=== PATIENT | female | born 1955 | race Caucasian/White ===

== ENCOUNTER 2016-11-24 13:52 | Emergency (ER) | payer OTHER ==
[2016-11-24] MEDS ORDERED: MORPHINE SULFATE 10 MG/ML INJ IV ONE (14:10)
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
[2016-11-24] MEDS ORDERED: DIPH/PERTUSS(ACELL)/TETANUS VAC/PF 0.5 ML SYR (>=10YO) IM ONE (15:17)
[2016-11-24] MEDS ORDERED: KETOROLAC TROMETHAMINE INJ/PF 30 MG/1 ML SDV IV ONE (15:59)
[2016-11-24] MEDS ORDERED: ONDANSETRON HCL INJ/PF 4 MG/2 ML SDV IV ONE (15:59)
[2016-11-24 18:07] VITALS: BP 131/80
== END 2016-11-24 16:45 | disposition home or self-care (01) ==
LOC: ER 13:52
DX: S16.1XXA Strain of muscle, fascia and tendon at neck level, initial encounter (principal); S60.222A Contusion of left hand, initial encounter; V49.40XA Driver injured in collision with unspecified motor vehicles in traffic accident, initial encounter; R51 Headache; M54.2 Cervicalgia; M79.642 Pain in left hand
CPT/HCPCS: 99284; 90471; 96374; 96375; 73130; 70450; 72125; 90715; J1885; J2270; J2405

== ENCOUNTER 2017-01-23 17:22 | Inpatient (IN) | payer OTHER ==
[~2017-01-23 17:22] MED LIST: SUCCINYLCHOLINE CHLORIDE INJ 200 MG/10 ML VIAL ONE
[2017-01-23] MEDS ORDERED: ONDANSETRON 4 MG TAB.RAPDIS PO PRN (18:33)
[2017-01-23] MEDS ORDERED: ALBUTEROL SULFATE 0.083% NEB 2.5 MG/3 ML AMPUL NEB PRN (18:40)
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
[2017-01-23 19:10] LABS: HEMATOCRIT 43.5 % (36.0-47.0); HEMOGLOBIN 14.8 g/dL (12.0-15.5); HGB HCT DIFFERENCE 0.9; MEAN CORPUSCULAR HEMOGLOBIN 29.6 pg (27.0-33.4); MEAN CORPUSCULAR HGB CONC 33.9 g/dL (32.0-36.0); MEAN CORPUSCULAR VOLUME 87 fl (80-97); RED BLOOD COUNT 4.98 10^6/uL (3.72-5.28); RED CELL DISTRIBUTION WIDTH 13.4 % (11.5-14.0); WHITE BLOOD COUNT 9.2 10^3/uL (4.0-10.5)
[2017-01-23 19:22] LABS: ANION GAP 15 (5-19); BLOOD UREA NITROGEN 14 mg/dL (7-20); CALCIUM 9.6 mg/dL (8.4-10.2); CARBON DIOXIDE 22 mmol/L (22-30); CHLORIDE 107 mmol/L (98-107); CREATININE RESULT 0.67 mg/dL (0.52-1.25); GLUCOSE 176 mg/dL (75-110); POTASSIUM 4.5 mmol/L (3.6-5.0); SODIUM 143.9 mmol/L (137-145)
--- NOTE | 2017-01-23 19:28 | RADIOLOGY REPORT (SQ) ---
EXAM DESCRIPTION: CHEST SINGLE VIEW COMPLETED DATE/TIME: 01/23/2017 7:16 pm REASON FOR STUDY: pre-op clearance COMPARISON: February 2008 EXAM PARAMETERS: NUMBER OF VIEWS: One view. TECHNIQUE: Single frontal radiographic view of the chest acquired. RADIATION DOSE: NA LIMITATIONS: None. FINDINGS: LUNGS AND PLEURA: No opacities, masses or pneumothorax. No pleural effusion. MEDIASTINUM AND HILAR STRUCTURES: No masses. Contour normal. HEART AND VASCULAR STRUCTURES: Heart normal in size. Normal vasculature. BONES: No acute findings. HARDWARE: None in the chest. OTHER: No other significant finding. IMPRESSION: NO ACUTE RADIOGRAPHIC FINDING IN THE CHEST. TECHNICAL DOCUMENTATION: JOB ID: [id number] [employer]- All Rights Reserved
--- NOTE | 2017-01-23 19:43 | EKG REPORT ---
SEVERITY:- NORMAL ECG - SINUS RHYTHM : Confirmed by: Robert Dozier MD 23-Jan-2017 19:42:57
[2017-01-23] MEDS ORDERED: LANSOPRAZOLE 30 MG TAB.RAP.DR PO ONE (20:00)
[2017-01-23] MEDS ORDERED: MONTELUKAST SODIUM 10 MG TABLET PO ONE (20:00)
[2017-01-23] MEDS: RINGERS SOLUTION,LACTATED 1,000 ML IV PRN (20:37)
[2017-01-23] MEDS: LORAZEPAM 1 MG TABLET PO SCH (22:03)
[2017-01-23] MEDS: AMITRIPTYLINE HCL 75 MG TABLET PO SCH (22:03)
[2017-01-23] MEDS: OXYCODONE HCL IR 5 MG TABLET PO PRN (22:04)
[2017-01-23] MEDS: VENLAFAXINE HCL 75 MG CAP.SR.24H PO SCH (22:04)
[2017-01-23] MEDS: ONDANSETRON HCL INJ/PF 4 MG/2 ML SDV IV PRN (22:06)
[2017-01-23 22:31] LABS: PROTHROMBIN TIME 12.1 SEC (11.4-15.4)
[2017-01-23 22:32] LABS: PARTIAL THROMBOPLASTIN TIME 25.2 SEC (23.5-35.8)
[2017-01-24] MEDS ORDERED: CEFAZOLIN 2 GM/D5W RTU 2 GM/50 ML RTUPB IV PRN (05:00)
[2017-01-24] MEDS: LANSOPRAZOLE 30 MG TAB.RAP.DR PO SCH ×2 (05:34→19:10)
[2017-01-24] MEDS: ONDANSETRON HCL INJ/PF 4 MG/2 ML SDV IV PRN ×2 (05:35→21:31)
[2017-01-24] MEDS: OXYCODONE HCL IR 5 MG TABLET PO PRN (05:35)
--- NOTE | 2017-01-24 07:21 | PDOC H&P ---
History of Present Illness Admission Date/PCP: 01/23/17 18:25 History of Present Illness: Bilateral upper extremity pain Past Medical History Cardiac Medical History: Reports: Hypertension Pulmonary Medical History: Reports: Asthma, Sleep Apnea EENT Medical History: Reports: None, Other - Pernicious anemia Neurological Medical History: Reports: Other - Neuropathy in her leg after knee surgery. Endocrine Medical History: Reports: None Renal/ Medical History: Reports: None Malignancy Medical History: Reports: None GI Medical History: Reports: Gastroesophageal Reflux Disease Musculoskeltal Medical History: Reports: Arthritis Psychiatric Medical History: Reports: Depression, General Anxiety Disorder Hematology: Reports: Other - Pernicious anemia Infectious Medical History: Reports: None Past Surgical History Past Surgical History: Reports: Orthopedic Surgery - knee and L elbow Social History Information Source: Patient, [facility], [facility] Records Lives with: Alone Smoking Status: Never Smoker Frequency of Alcohol Use: None Hx Recreational Drug Use: No Drugs: None Hx Prescription Drug Abuse: No - Advance Directive Resuscitation Status: Full Code Family History Family History: None Parental Family History Reviewed: No Children Family History Reviewed: No Sibling(s) Family History Reviewed.: No Medication/Allergy Home Medications: Albuterol Sulfate [Albuterol Sulfate 2.5mg/3 mL] 2.5 mg IH Q4 PRN 01/24/17 Albuterol Sulfate [Ventolin Hfa] 2 puff IH Q4 PRN 01/24/17 Amitriptyline HCl [Elavil 150 mg Tablet] 1 tab PO DAILY 01/24/17 Amlodipine Besylate 2.5 mg PO DAILY 01/24/17 Ascorbic Acid [Vitamin C] 1,000 mg PO DAILY 01/24/17 Aspirin [Adult Low Dose Aspirin EC] 81 mg PO DAILY 01/24/17 Cholecalciferol (Vitamin D3) [Vitamin D3 5000 unit Capsule] 5,000 unit PO DAILY 01/24/17 Cyanocobalamin (Vitamin B-12) [Vitamin B-12 Inj 1000 Mcg/1 ml Vial] 1,000 mcg IM [id number] 01/24/17 Ergocalciferol (Vitamin D2) [Vitamin D2] 50,000 unit PO FR 01/24/17 Ferrous Sulfate 325 mg PO BID 01/24/17 Lorazepam 2 mg PO BID 01/24/17 Losartan Potassium 50 mg PO DAILY 01/24/17 Montelukast Sodium 10 mg PO DAILY 01/24/17 Parachute-3 Fatty Acids/Fish Oil [Fish Oil 1,000 mg Capsule] 2 tab PO DAILY Omeprazole 40 mg PO BID 01/24/17 Oxycodone HCl/Acetaminophen [Oxycodon-Acetaminophen 7.5-325] 1 each PO Q6HP PRN 01/24/17 Temazepam 15 mg PO DAILY 01/24/17 Venlafaxine HCl [Effexor] 150 mg PO BID 01/24/17 Zolpidem Tartrate 10 mg PO DAILY 01/24/17 Allergies/Adverse Reactions: Penicillins Allergy (Mild, Verified 01/23/17 19:35) Hives Review of Systems All systems: as per [facility] Physical Exam Vital Signs: Temp Pulse Resp BP Pulse Ox 36.8 C 71 18 113/61 97 01/24/17 00:53 01/24/17 02:00 01/24/17 00:53 01/24/17 00:53 01/24/17 00:53 Intake & Output 01/23/17 01/24/17 01/25/17 06:59 06:59 06:59 Weight 115 kg Physical Exam: Patient is a middle-aged white female with significant nasal and periorbital ecchymosis and minor to moderate distress Head exam: PRESENT: normocephalic Eye exam: PRESENT: EOMI Adult Head Front/Back Image: 1 - Ecchymosis Respiratory exam: PRESENT: unlabored Cardiovascular exam: PRESENT: RRR Vascular exam: PRESENT: normal capillary refill GI/Abdominal exam: PRESENT: soft Rectal exam: PRESENT: deferred Extremities exam: PRESENT: other - Bilateral upper extremities immobilized in posterior splints. Neurovascular examination to each of the 10 fingers is intact. Neurological exam: PRESENT: alert, awake, oriented to person, oriented to place , oriented to time, oriented to situation. ABSENT: motor sensory deficit Psychiatric exam: PRESENT: appropriate affect, normal mood. ABSENT: homicidal ideation, suicidal ideation Skin exam: PRESENT: dry, intact, warm. ABSENT: cyanosis, rash Results Laboratory Results: 01/23/17 19:00 01/23/17 19:00 01/23/17 01/23/17 19:00 19:00 WBC 9.2 RBC 4.98 Hgb 14.8 Hct 43.5 MCV 87 MCH 29.6 MCHC 33.9 RDW 13.4 Plt Count 153 Sodium 143.9 Potassium 4.5 Chloride 107 Carbon Dioxide 22 Anion Gap 15 BUN 14 Creatinine 0.67 Est GFR ( Amer) > 60 Est GFR (Non-Af Amer) > 60 Glucose 176 H Calcium 9.6 Impressions: Chest X-Ray 01/23/17 00:00 IMPRESSION: NO ACUTE RADIOGRAPHIC FINDING IN THE CHEST. Status: Imported from PACS Assessment & Plan - Diagnosis (1) Radial neck fracture Qualifiers: Encounter type: initial encounter Fracture type: closed Fracture alignment: nondisplaced Laterality: left Qualified Code(s): S52.135A - Nondisplaced fracture of neck of left radius, initial encounter for closed fracture Is this a current diagnosis for this admission?: Yes Plan: 61-year-old white female with bilateral upper extremity fractures which leaves her with significant functional deficit. Plan will be to proceed with an open reduction internal fixation of both radial head fractures. The goal of this will be to improve her function allow her to care for herself since she lives alone. - Time Time Spent: 50 to 70 Minutes Critical Time spent with patient: 15-24 minutes Anticipated discharge: Home with Homehealth Within: within 24 hours
[2017-01-24] MEDS: RINGERS SOLUTION,LACTATED 1,000 ML IV PRN ×2 (10:09→21:32)
[2017-01-24] MEDS: AMLODIPINE BESYLATE 2.5 MG TABLET PO SCH (10:52)
[2017-01-24] MEDS: LORAZEPAM 1 MG TABLET PO SCH (10:52)
[2017-01-24] MEDS: LOSARTAN POTASSIUM 50 MG TABLET PO SCH (10:52)
[2017-01-24] MEDS: VENLAFAXINE HCL 75 MG CAP.SR.24H PO SCH ×2 (10:52→21:33)
[2017-01-24] MEDS ORDERED: LORAZEPAM 1 MG TABLET PO ONE (11:00)
[2017-01-24] MEDS ORDERED: LORAZEPAM INJ 2 MG/1 ML VIAL IV ONE (11:00)
[2017-01-24] MEDS: MORPHINE SULFATE 10 MG/ML INJ IV PRN ×2 (11:20→21:34)
--- NOTE | 2017-01-24 11:36 | PDOC PROGRESS REPORT ---
Subjective Progress Note for:: 01/24/17 Subjective:: Complains of pain in her bilateral arms. Physical Exam Vital Signs: Temp Pulse Resp BP Pulse Ox 98.5 F 78 14 148/63 H 94 01/24/17 07:37 01/24/17 10:04 01/24/17 10:04 01/24/17 07:37 01/24/17 10:04 Intake & Output 01/23/17 01/24/17 01/25/17 06:59 06:59 06:59 Intake Total 1528 Output Total 550 Balance 978 Weight 115 kg General appearance: PRESENT: no acute distress Head exam: PRESENT: other - Large hematoma involving the bridge of the nose and bilateral periorbital area. Eye exam: PRESENT: conjunctiva pink. ABSENT: scleral icterus Mouth exam: PRESENT: moist, tongue midline Neck exam: ABSENT: JVD Respiratory exam: PRESENT: clear to auscultation blanca. ABSENT: rales, rhonchi, wheezes Cardiovascular exam: PRESENT: RRR. ABSENT: diastolic murmur, rubs, systolic murmur GI/Abdominal exam: PRESENT: normal bowel sounds, soft. ABSENT: distended, guarding, mass, organolmegaly, rebound, tenderness Extremities exam: PRESENT: other - Splints on the bilateral forearms.. ABSENT: calf tenderness, clubbing, pedal edema Neurological exam: PRESENT: alert, awake, oriented to person, oriented to place , oriented to time, oriented to situation, CN II-XII grossly intact. ABSENT: motor sensory deficit Psychiatric exam: PRESENT: appropriate affect Skin exam: PRESENT: other - Large hematoma over the bridge of the nose and periorbital area. Results Laboratory Results: 01/23/17 19:00 01/23/17 19:00 01/23/17 01/23/17 19:00 19:00 WBC 9.2 RBC 4.98 Hgb 14.8 Hct 43.5 MCV 87 MCH 29.6 MCHC 33.9 RDW 13.4 Plt Count 153 Sodium 143.9 Potassium 4.5 Chloride 107 Carbon Dioxide 22 Anion Gap 15 BUN 14 Creatinine 0.67 Est GFR ( Amer) > 60 Est GFR (Non-Af Amer) > 60 Glucose 176 H Calcium 9.6 Impressions: Chest X-Ray 01/23/17 00:00 IMPRESSION: NO ACUTE RADIOGRAPHIC FINDING IN THE CHEST. Assessment & Plan - Diagnosis (1) Radial neck fracture Qualifiers: Encounter type: initial encounter Fracture type: closed Fracture alignment: nondisplaced Laterality: left Qualified Code(s): S52.135A - Nondisplaced fracture of neck of left radius, initial encounter for closed fracture Is this a current diagnosis for this admission?: Yes Plan: The patient had a fall and fractured both of her arms. She has no cardiac history. It is incorrectly listed in the emergency room note that she has atrial fibrillation.. The patient denies any history of atrial fibrillation. She has good exercise tolerance prior to this. She should be at low risk for the planned surgical procedure. She does have a history however of sleep apnea and given her nasal fracture will need to watch closely as she will not be able to wear her CPAP (2) Obstructive sleep apnea Is this a current diagnosis for this admission?: Yes Plan: The patient normally wears a CPAP at night. Because of her nasal fracture she will be unable to do that. We will give oxygen at night and watch her closely to make certain she does not have desaturations. (3) Hypertension Is this a current diagnosis for this admission?: Yes Plan: Continue with losartan and Norvasc. (4) Asthma Is this a current diagnosis for this admission?: Yes Plan: We will give nebulizers as needed. (5) Peripheral neuropathy Is this a current diagnosis for this admission?: Yes (6) Pernicious anemia Is this a current diagnosis for this admission?: Yes (7) Nasal fracture Qualifiers: Encounter type: initial encounter Fracture type: closed Qualified Code(s) : S02.2XXA - Fracture of nasal bones, initial encounter for closed fracture Is this a current diagnosis for this admission?: Yes (8) Depression Is this a current diagnosis for this admission?: Yes Plan: The patient is on Effexor and Elavil as well as Ativan. We will continue with her outpatient dosing. - Time Time Spent with patient: 25-34 minutes - Inpatient Certification Medical Necessity: Need Close Monitoring Due to Risk of Patient Decompensation - Plan Summary Plan Summary: Patient is to go to the OR today for open reduction internal fixation.
[2017-01-24] MEDS ORDERED: MIDAZOLAM 2 MG/2 ML INJ ONE (14:16)
[2017-01-24] MEDS ORDERED: FENTANYL CITRATE INJ/PF 250 MCG/5 ML AMPULE ONE (14:16)
[2017-01-24] MEDS ORDERED: ONDANSETRON HCL INJ/PF 4 MG/2 ML SDV ONE (14:17)
[2017-01-24] MEDS ORDERED: PROPOFOL INJ 200 MG/20 ML VIAL IV ONE (14:17)
[2017-01-24] MEDS ORDERED: IBUPROFEN INJ 800 MG/8 ML VIAL IV ONE (14:17)
[2017-01-24] MEDS ORDERED: CEFAZOLIN INJ 1 GM VIAL ONE (14:33)
[2017-01-24] MEDS ORDERED: MEPERIDINE HCL/PF INJ 25 MG/1 ML DISP.SYRIN IV PRN (14:57)
[2017-01-24] MEDS ORDERED: MORPHINE SULFATE 10 MG/ML INJ IV PRN (14:57)
[2017-01-24] MEDS ORDERED: FENTANYL CITRATE INJ/PF 100 MCG/2 ML AMPUL IV PRN ×3 (14:57)
[2017-01-24] MEDS ORDERED: PROMETHAZINE HCL INJ 25 MG/1 ML VIAL IV PRN (14:57)
[2017-01-24] MEDS ORDERED: DIPHENHYDRAMINE HCL 50 MG/ML VIAL IV PRN (14:57)
[2017-01-24] MEDS ORDERED: ONDANSETRON HCL INJ/PF 4 MG/2 ML SDV IV PRN (14:57)
--- NOTE | 2017-01-24 15:53 | Operative Report ---
Operative Report DATE OF SURGERY: 01/24/17 PREOPERATIVE DIAGNOSIS: Bilateral radial neck fractures OPERATION: Open reduction internal fixation of bilateral radial neck fractures SURGEON: ROBIN MENDEZ ANESTHESIA: GA ESTIMATED BLOOD LOSS: 25 PROCEDURE: Patient supine on the operating table bilateral upper extremities were prepped and draped in sterile fashion. Beginning on the left the extremity is elevated and tourniquet inflated 250 torr. The patient appears to have had a previous approach potentially for lateral epicondylitis. This incision is used and carried down to the annular ligament. The annular ligament is divided in the direction of its fibers. The underlying radial head is identified in the soft tissue elevated off the neck. A Stevie stainless steel radial neck and head plate is applied to the lateral surface and secured with 2 screws proximally and 3 screws distally. The tourniquet is deflated. Hemostasis obtained with electrocautery. The wound was irrigated. Is closed using interrupted Vicryl followed by nylon. At this point an identical procedure was performed on the right side. The patient has bilateral upper extremity compressive dressings placed and was returned to the PACU in satisfactory condition.
--- NOTE | 2017-01-24 16:24 | RADIOLOGY REPORT (SQ) ---
EXAM DESCRIPTION: NO CHG FLUORO; ELBOW BILATERAL 2 VIEWS MIN COMPLETED DATE/TIME: 01/24/2017 4:03 pm REASON FOR STUDY: ORIF BILAT ELBOWS COMPARISON: None. FLUOROSCOPY TIME: 0.2 minutes 7 Images saved to PACS LIMITATIONS: None. PROCEDURE: ORIF radial fracture FINDINGS: Images obtained from fluoro document placement of a compression plate on the proximal radi us with multiple screws. IMPRESSION: Or ORIF radial fracture. COMMENT: PQRS 6045F: Fluoroscopy time of the procedure is documented in the report. TECHNICAL DOCUMENTATION: JOB ID: [id number] [employer]- All Rights Reserved
--- NOTE | 2017-01-24 16:24 | RADIOLOGY REPORT (SQ) ---
EXAM DESCRIPTION: NO CHG FLUORO; ELBOW BILATERAL 2 VIEWS MIN COMPLETED DATE/TIME: 01/24/2017 4:03 pm REASON FOR STUDY: ORIF BILAT ELBOWS COMPARISON: None. FLUOROSCOPY TIME: 0.2 minutes 7 Images saved to PACS LIMITATIONS: None. PROCEDURE: ORIF radial fracture FINDINGS: Images obtained from fluoro document placement of a compression plate on the proximal radi us with multiple screws. IMPRESSION: Or ORIF radial fracture. COMMENT: PQRS 6045F: Fluoroscopy time of the procedure is documented in the report. TECHNICAL DOCUMENTATION: JOB ID: [id number] [employer]- All Rights Reserved
[2017-01-24] MEDS: FENTANYL CITRATE INJ/PF 100 MCG/2 ML AMPUL ONE ×2 (16:30→16:40)
[2017-01-24] MEDS ORDERED: HYDROMORPHONE HCL INJ/PF 2 MG/ML AMPULE ONE (16:58)
[2017-01-24] MEDS ORDERED: METOCLOPRAMIDE HCL INJ/PF 10 MG/2 ML SDV ONE (16:58)
[2017-01-24] MEDS ORDERED: ACETAMINOPHEN 100 ML IV ONE (17:22)
[2017-01-24] MEDS ORDERED: NORMAL SALINE 500 ML IV ONE (18:00)
[2017-01-24] MEDS ORDERED: RINGERS SOLUTION,LACTATED 500 ML IV ONE (18:00)
[2017-01-24] MEDS: PANTOPRAZOLE SODIUM 40 MG VIAL IV SCH (21:29)
[2017-01-24] MEDS: LORAZEPAM INJ 2 MG/1 ML VIAL IV SCH (21:30)
[2017-01-24] MEDS: CEFAZOLIN 2 GM/D5W RTU 2 GM/50 ML RTUPB IV SCH (21:31)
[2017-01-24] MEDS: MONTELUKAST SODIUM 10 MG TABLET PO SCH (21:33)
[2017-01-24] MEDS: AMITRIPTYLINE HCL 75 MG TABLET PO SCH (21:33)
[2017-01-25] MEDS: MORPHINE SULFATE 10 MG/ML INJ IV PRN ×4 (03:48→19:40)
[2017-01-25] MEDS: RINGERS SOLUTION,LACTATED 1,000 ML IV PRN (05:00)
[2017-01-25] MEDS: CEFAZOLIN 2 GM/D5W RTU 2 GM/50 ML RTUPB IV SCH (06:07)
[2017-01-25] MEDS: OXYCODONE HCL IR 5 MG TABLET PO PRN ×3 (06:08→18:55)
[2017-01-25] MEDS: LANSOPRAZOLE 30 MG TAB.RAP.DR PO SCH ×2 (06:08→17:54)
[2017-01-25] MEDS: ONDANSETRON HCL INJ/PF 4 MG/2 ML SDV IV PRN ×2 (06:08→19:01)
[2017-01-25] MEDS: PANTOPRAZOLE SODIUM 40 MG VIAL IV SCH (06:08)
--- NOTE | 2017-01-25 06:54 | PDOC PROGRESS REPORT ---
Subjective Progress Note for:: 01/25/17 Subjective:: Patient complaining of more pain and stiffness than yesterday Physical Exam Vital Signs: Temp Pulse Resp BP Pulse Ox 36.7 C 69 20 167/58 H 96 01/25/17 03:39 01/25/17 03:39 01/25/17 03:39 01/25/17 03:39 01/25/17 04:00 Pulse Oximeter Continuous Start: 01/24/17 18: 27 Freq: RTQ4 Status: Active Document 01/25/17 04:00 CMI (Rec: 01/25/17 04:01 CMI [email or web address]) Pulse Oximetry Assessment Oxygen Saturation (92-100) 96 Oxygen Flow Rate (L/min) 10 Oxygen Delivery Method Face Tent Fraction of Inspired Oxygen (FIO2) 30 Equipment Usage Equipment in Use Continuous SpO2 Machine # N-4 Intake & Output 01/23/17 01/24/17 01/25/17 06:59 06:59 06:59 Intake Total 1528 3675 Output Total 550 2075 Balance 978 1600 Weight 115 kg 113 kg General appearance: PRESENT: mild distress Head exam: PRESENT: normocephalic Head Image: 1 - Ecchymosis Respiratory exam: PRESENT: unlabored Cardiovascular exam: PRESENT: RRR Pulses: PRESENT: +1 pedal pulses bilateral Vascular exam: PRESENT: normal capillary refill GI/Abdominal exam: PRESENT: soft Rectal exam: PRESENT: deferred Extremities exam: PRESENT: other - Bilateral upper extremity dressings clean dry and intact. Distal neurovascular examination of the hand is intact. Neurological exam: PRESENT: alert, awake, oriented to person, oriented to place , oriented to time, oriented to situation. ABSENT: motor sensory deficit Psychiatric exam: PRESENT: appropriate affect, normal mood. ABSENT: homicidal ideation, suicidal ideation Skin exam: PRESENT: dry, intact, warm. ABSENT: cyanosis, rash Results Laboratory Results: 01/23/17 19:00 01/23/17 19:00 Impressions: Chest X-Ray 01/23/17 00:00 IMPRESSION: NO ACUTE RADIOGRAPHIC FINDING IN THE CHEST. Elbow X-Ray 01/24/17 00:00 IMPRESSION: Or ORIF radial fracture. Fluoroscopy 01/24/17 00:00 IMPRESSION: Or ORIF radial fracture. Status: Imported from PACS Assessment & Plan - Diagnosis (1) Radial neck fracture Qualifiers: Encounter type: initial encounter Fracture type: closed Fracture alignment: nondisplaced Laterality: left Qualified Code(s): S52.135A - Nondisplaced fracture of neck of left radius, initial encounter for closed fracture Is this a current diagnosis for this admission?: Yes Plan: 61-year-old white male postop day 1 from bilateral radial head fracture open reduction internal fixation. Plan will be for active range of motion with occupational therapy. Patient is exploring discharge options and would rather be discharged home as opposed to a retirement facility. Her sister who lives in [facility] feels that she should go to a retirement facility. - Time Time Spent with patient: 15-24 minutes Anticipated discharge: Home with Homehealth Within: within 24 hours
[2017-01-25] MEDS: LOSARTAN POTASSIUM 50 MG TABLET PO SCH (09:41)
[2017-01-25] MEDS: ASPIRIN 325 MG TABLET, ENT COATED PO SCH (09:41)
[2017-01-25] MEDS: VENLAFAXINE HCL 75 MG CAP.SR.24H PO SCH ×2 (09:41→22:26)
[2017-01-25] MEDS: AMLODIPINE BESYLATE 2.5 MG TABLET PO SCH (09:42)
[2017-01-25] MEDS: LORAZEPAM INJ 2 MG/1 ML VIAL IV SCH ×2 (09:42→22:28)
--- NOTE | 2017-01-25 12:02 | PDOC PROGRESS REPORT ---
Subjective Progress Note for:: 01/25/17 Subjective:: Complains of pain in her bilateral arms. Physical Exam Vital Signs: Temp Pulse Resp BP Pulse Ox 98.3 F 72 18 180/54 H 96 01/25/17 07:40 01/25/17 07:40 01/25/17 07:40 01/25/17 07:40 01/25/17 07:55 Pulse Oximeter Continuous Start: 01/24/17 18: 27 Freq: RTQ4 Status: Active Document 01/25/17 07:55 HCR (Rec: 01/25/17 09:49 HCR [email or web address]) Pulse Oximetry Assessment Oxygen Saturation (92-100) 96 Oxygen Delivery Method Room Air Equipment Usage Equipment in Use Continuous SpO2 Machine # 4 Intake & Output 01/24/17 01/25/17 01/26/17 06:59 06:59 06:59 Intake Total 1528 5575 Output Total 550 2925 Balance 978 2650 Weight 115 kg 113 kg General appearance: PRESENT: no acute distress Head exam: PRESENT: other - Hematoma in the periorbital bilateral and nasal bridge area Eye exam: PRESENT: conjunctiva pink. ABSENT: scleral icterus Mouth exam: PRESENT: moist, tongue midline Neck exam: ABSENT: JVD Respiratory exam: PRESENT: clear to auscultation blanca. ABSENT: rales, rhonchi, wheezes Cardiovascular exam: PRESENT: RRR. ABSENT: diastolic murmur, rubs, systolic murmur GI/Abdominal exam: PRESENT: normal bowel sounds, soft. ABSENT: distended, guarding, mass, organolmegaly, rebound, tenderness Extremities exam: ABSENT: calf tenderness, clubbing, pedal edema Neurological exam: PRESENT: alert, awake, oriented to person, oriented to place , oriented to time, oriented to situation, CN II-XII grossly intact. ABSENT: motor sensory deficit Psychiatric exam: PRESENT: appropriate affect Skin exam: PRESENT: other - Ecchymosis in the bridge of the nose as well as bilateral orbital area. Results Laboratory Results: 01/23/17 19:00 01/23/17 19:00 Impressions: Chest X-Ray 01/23/17 00:00 IMPRESSION: NO ACUTE RADIOGRAPHIC FINDING IN THE CHEST. Elbow X-Ray 01/24/17 00:00 IMPRESSION: Or ORIF radial fracture. Fluoroscopy 01/24/17 00:00 IMPRESSION: Or ORIF radial fracture. Assessment & Plan - Diagnosis (1) Radial neck fracture Qualifiers: Encounter type: initial encounter Fracture type: closed Fracture alignment: nondisplaced Laterality: left Qualified Code(s): S52.135A - Nondisplaced fracture of neck of left radius, initial encounter for closed fracture Is this a current diagnosis for this admission?: Yes Plan: The patient had a fall and fractured both of her arms. The patient had surgical repair yesterday without difficulty. (2) Obstructive sleep apnea Is this a current diagnosis for this admission?: Yes Plan: The patient normally wears a CPAP at night. Because of her nasal fracture she will be unable to do that. We will give oxygen at night and watch her closely to make certain she does not have desaturations. (3) Hypertension Is this a current diagnosis for this admission?: Yes Plan: Continue with losartan and Norvasc. (4) Asthma Is this a current diagnosis for this admission?: Yes Plan: We will give nebulizers as needed. (5) Peripheral neuropathy Is this a current diagnosis for this admission?: Yes (6) Pernicious anemia Is this a current diagnosis for this admission?: Yes (7) Nasal fracture Qualifiers: Encounter type: initial encounter Fracture type: closed Qualified Code(s) : S02.2XXA - Fracture of nasal bones, initial encounter for closed fracture Is this a current diagnosis for this admission?: Yes (8) Depression Is this a current diagnosis for this admission?: Yes Plan: The patient is on Effexor and Elavil as well as Ativan. We will continue with her outpatient dosing. - Time Time Spent with patient: 25-34 minutes - Inpatient Certification Medical Necessity: Need Close Monitoring Due to Risk of Patient Decompensation
[2017-01-25] MEDS: AMITRIPTYLINE HCL 75 MG TABLET PO SCH (22:27)
[2017-01-25] MEDS: MONTELUKAST SODIUM 10 MG TABLET PO SCH (22:28)
[2017-01-26] MEDS: MORPHINE SULFATE 10 MG/ML INJ IV PRN ×5 (01:50→20:13)
[2017-01-26] MEDS: OXYCODONE HCL IR 5 MG TABLET PO PRN ×4 (04:30→22:30)
[2017-01-26] MEDS: RINGERS SOLUTION,LACTATED 1,000 ML IV PRN (04:33)
--- NOTE | 2017-01-26 05:40 | PDOC PROGRESS REPORT ---
Subjective Progress Note for:: 01/26/17 Subjective:: Patient complaining about pain in both upper extremities. 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 Physical Exam Vital Signs: Temp Pulse Resp BP Pulse Ox 36.7 C 76 20 150/67 H 96 01/26/17 03:28 01/26/17 03:28 01/26/17 03:28 01/26/17 03:28 01/26/17 03:56 Pulse Oximeter Continuous Start: 01/24/17 18: 27 Freq: RTQ4 Status: Active Document 01/26/17 03:56 EAL (Rec: 01/26/17 04:27 EAL [email or web address]) Pulse Oximetry Assessment Oxygen Saturation (92-100) 96 Oxygen Delivery Method Room Air Fraction of Inspired Oxygen (FIO2) 21 Equipment Usage Equipment in Use Continuous SpO2 Machine # N-4 Intake & Output 01/24/17 01/25/17 01/26/17 06:59 06:59 06:59 Intake Total 1528 5575 1837 Output Total 550 2925 1500 Balance 978 2650 337 Weight 115 kg 113 kg 122 kg General appearance: PRESENT: mild distress, obese Head exam: PRESENT: normocephalic Extremities exam: PRESENT: other - Bilateral upper extremity wounds are covered with Dermabond. They are clean and dry. There is some surrounding erythema/ ecchymosis. There is brisk capillary refill in each of the digits. The patient is able to raise her hand above her head and begin to flex and extend the elbows. Results Laboratory Results: 01/23/17 19:00 01/23/17 19:00 Impressions: Chest X-Ray 01/23/17 00:00 IMPRESSION: NO ACUTE RADIOGRAPHIC FINDING IN THE CHEST. Elbow X-Ray 01/24/17 00:00 IMPRESSION: Or ORIF radial fracture. Fluoroscopy 01/24/17 00:00 IMPRESSION: Or ORIF radial fracture. Status: Imported from PACS Assessment & Plan - Diagnosis (1) Radial neck fracture Qualifiers: Encounter type: initial encounter Fracture type: closed Fracture alignment: nondisplaced Laterality: left Qualified Code(s): S52.135A - Nondisplaced fracture of neck of left radius, initial encounter for closed fracture Is this a current diagnosis for this admission?: Yes Plan: 61-year-old female status post bilateral upper extremity ORIF. Overall the patient appears to do well. My concern for surgical site infection at this point is low. - Time Time Spent with patient: 15-24 minutes Anticipated discharge: SNF Within: when bed available
[2017-01-26] MEDS: LANSOPRAZOLE 30 MG TAB.RAP.DR PO SCH ×2 (06:46→16:06)
[2017-01-26] MEDS: LOSARTAN POTASSIUM 50 MG TABLET PO SCH (09:22)
[2017-01-26] MEDS: AMLODIPINE BESYLATE 2.5 MG TABLET PO SCH (09:23)
[2017-01-26] MEDS: VENLAFAXINE HCL 75 MG CAP.SR.24H PO SCH ×2 (09:23→22:22)
[2017-01-26] MEDS: ASPIRIN 325 MG TABLET, ENT COATED PO SCH (09:23)
[2017-01-26] MEDS: LORAZEPAM INJ 2 MG/1 ML VIAL IV SCH ×2 (09:24→22:22)
--- NOTE | 2017-01-26 09:48 | PDOC PROGRESS REPORT ---
Subjective Progress Note for:: 01/26/17 Subjective:: Complains of pain in her bilateral arms. Physical Exam Vital Signs: Temp Pulse Resp BP Pulse Ox 98.1 F 74 18 144/64 H 90 L 01/26/17 07:26 01/26/17 07:26 01/26/17 07:26 01/26/17 07:26 01/26/17 07:26 Pulse Oximeter Continuous Start: 01/24/17 18: 27 Freq: RTQ4 Status: Active Document 01/26/17 03:56 EAL (Rec: 01/26/17 04:27 EAL [email or web address]) Pulse Oximetry Assessment Oxygen Saturation (92-100) 96 Oxygen Delivery Method Room Air Fraction of Inspired Oxygen (FIO2) 21 Equipment Usage Equipment in Use Continuous SpO2 Machine # N-4 Intake & Output 01/25/17 01/26/17 01/27/17 06:59 06:59 06:59 Intake Total 5575 3787 Output Total 2925 1500 Balance 2650 2287 Weight 113 kg 122 kg General appearance: PRESENT: no acute distress Eye exam: PRESENT: conjunctiva pink. ABSENT: scleral icterus Mouth exam: PRESENT: moist, tongue midline Neck exam: ABSENT: JVD Respiratory exam: PRESENT: clear to auscultation blanca. ABSENT: rales, rhonchi, wheezes Cardiovascular exam: PRESENT: RRR. ABSENT: diastolic murmur, rubs, systolic murmur GI/Abdominal exam: PRESENT: normal bowel sounds, soft. ABSENT: distended, guarding, mass, organolmegaly, rebound, tenderness Extremities exam: PRESENT: other - Bilateral forearms have duong in place with no drainage.. ABSENT: calf tenderness, clubbing, pedal edema Neurological exam: PRESENT: alert, awake, oriented to person, oriented to place , oriented to time, oriented to situation, CN II-XII grossly intact. ABSENT: motor sensory deficit Psychiatric exam: PRESENT: appropriate affect Skin exam: PRESENT: dry, intact, warm. ABSENT: cyanosis, rash Results Laboratory Results: 01/23/17 19:00 01/23/17 19:00 Impressions: Chest X-Ray 01/23/17 00:00 IMPRESSION: NO ACUTE RADIOGRAPHIC FINDING IN THE CHEST. Elbow X-Ray 01/24/17 00:00 IMPRESSION: Or ORIF radial fracture. Fluoroscopy 01/24/17 00:00 IMPRESSION: Or ORIF radial fracture. Assessment & Plan - Diagnosis (1) Radial neck fracture Qualifiers: Encounter type: initial encounter Fracture type: closed Fracture alignment: nondisplaced Laterality: left Qualified Code(s): S52.135A - Nondisplaced fracture of neck of left radius, initial encounter for closed fracture Is this a current diagnosis for this admission?: Yes Plan: The patient had a fall and fractured both of her arms. The patient had surgical repair without difficulty. (2) Obstructive sleep apnea Is this a current diagnosis for this admission?: Yes Plan: The patient normally wears a CPAP at night. Because of her nasal fracture she will be unable to do that. We will give oxygen at night and watch her closely to make certain she does not have desaturations. (3) Hypertension Is this a current diagnosis for this admission?: Yes Plan: Continue with losartan and Norvasc. (4) Asthma Is this a current diagnosis for this admission?: Yes Plan: We will give nebulizers as needed. (5) Peripheral neuropathy Is this a current diagnosis for this admission?: Yes (6) Pernicious anemia Is this a current diagnosis for this admission?: Yes (7) Nasal fracture Qualifiers: Encounter type: initial encounter Fracture type: closed Qualified Code(s) : S02.2XXA - Fracture of nasal bones, initial encounter for closed fracture Is this a current diagnosis for this admission?: Yes (8) Depression Is this a current diagnosis for this admission?: Yes Plan: The patient is on Effexor and Elavil as well as Ativan. We will continue with her outpatient dosing. - Time Time Spent with patient: 15-24 minutes
[2017-01-26] MEDS: AMITRIPTYLINE HCL 75 MG TABLET PO SCH (22:22)
[2017-01-26] MEDS: MONTELUKAST SODIUM 10 MG TABLET PO SCH (22:23)
[2017-01-27] MEDS: MORPHINE SULFATE 10 MG/ML INJ IV PRN ×4 (02:58→23:05)
[2017-01-27] MEDS: RINGERS SOLUTION,LACTATED 1,000 ML IV PRN ×2 (04:52→11:11)
[2017-01-27] MEDS: LANSOPRAZOLE 30 MG TAB.RAP.DR PO SCH ×2 (06:57→17:23)
[2017-01-27] MEDS: OXYCODONE HCL IR 5 MG TABLET PO PRN ×3 (08:26→20:51)
[2017-01-27] MEDS ORDERED: VANCOMYCIN HCL 0 MG in DEXTROSE 5%-WATER 250 ML IV NR (09:15)
[2017-01-27] MEDS: ASPIRIN 325 MG TABLET, ENT COATED PO SCH (09:36)
[2017-01-27] MEDS: AMLODIPINE BESYLATE 2.5 MG TABLET PO SCH (09:37)
[2017-01-27] MEDS: LORAZEPAM INJ 2 MG/1 ML VIAL IV SCH ×2 (09:37→22:20)
[2017-01-27] MEDS: VENLAFAXINE HCL 75 MG CAP.SR.24H PO SCH ×2 (09:37→22:21)
[2017-01-27] MEDS: LOSARTAN POTASSIUM 50 MG TABLET PO SCH (09:38)
--- NOTE | 2017-01-27 09:53 | PDOC PROGRESS REPORT ---
Subjective Progress Note for:: 01/27/17 Subjective:: Patient complaining of some discomfort left greater than right upper extremity associated with motion Physical Exam Vital Signs: Temp Pulse Resp BP Pulse Ox 36.7 C 73 12 171/76 H 97 01/27/17 07:30 01/27/17 07:30 01/27/17 07:30 01/27/17 07:30 01/27/17 07:30 Pulse Oximeter Continuous Start: 01/24/17 18: 27 Freq: RTQ4 Status: Active Document 01/27/17 04:38 EAL (Rec: 01/27/17 04:55 EAL [email or web address]) Pulse Oximetry Assessment Oxygen Saturation (92-100) 96 Oxygen Flow Rate (L/min) 2 Oxygen Delivery Method Face Tent Fraction of Inspired Oxygen (FIO2) 28 Equipment Usage Equipment in Use Continuous SpO2 Machine # 4 Intake & Output 01/26/17 01/27/17 01/28/17 06:59 06:59 06:59 Intake Total 3787 4746 Output Total 1500 2400 Balance 2287 2346 Weight 122 kg 122 kg General appearance: PRESENT: mild distress, obese Head Image: 1 - Ecchymosis is spreading Respiratory exam: PRESENT: unlabored Cardiovascular exam: PRESENT: RRR Pulses: PRESENT: normal radial pulses Vascular exam: PRESENT: normal capillary refill Extremities exam: PRESENT: other - Bilateral upper extremity incisions are clean dry and intact. Passive and active range of motion are improving. Distal neurovascular examination to the digits is intact. Neurological exam: PRESENT: alert, awake, oriented to person, oriented to place , oriented to time, oriented to situation, CN II-XII grossly intact. ABSENT: motor sensory deficit Psychiatric exam: PRESENT: appropriate affect, normal mood. ABSENT: homicidal ideation, suicidal ideation Skin exam: PRESENT: dry, intact, warm. ABSENT: cyanosis, rash Results Laboratory Results: 01/23/17 19:00 01/23/17 19:00 Impressions: Chest X-Ray 01/23/17 00:00 IMPRESSION: NO ACUTE RADIOGRAPHIC FINDING IN THE CHEST. Elbow X-Ray 01/24/17 00:00 IMPRESSION: Or ORIF radial fracture. Fluoroscopy 01/24/17 00:00 IMPRESSION: Or ORIF radial fracture. Status: Imported from PACS Assessment & Plan - Diagnosis (1) Radial neck fracture Qualifiers: Encounter type: initial encounter Fracture type: closed Fracture alignment: nondisplaced Laterality: left Qualified Code(s): S52.135A - Nondisplaced fracture of neck of left radius, initial encounter for closed fracture Is this a current diagnosis for this admission?: Yes Plan: Patient working on both active and active assisted range of motion of both upper extremities. She is making excellent progress with elbow flexion extension. I have encouraged her to work on pronation and supination as well. - Time Time Spent with patient: 15-24 minutes Anticipated discharge: SNF Within: when bed available
--- NOTE | 2017-01-27 10:55 | PDOC PROGRESS REPORT ---
Subjective Progress Note for:: 01/27/17 Subjective:: Has erythema on the left arm proximal to the surgical wound. Physical Exam Vital Signs: Temp Pulse Resp BP Pulse Ox 98.0 F 73 12 171/76 H 97 01/27/17 07:30 01/27/17 07:30 01/27/17 07:30 01/27/17 07:30 01/27/17 07:30 Pulse Oximeter Continuous Start: 01/24/17 18: 27 Freq: RTQ4 Status: Active Document 01/27/17 04:38 EAL (Rec: 01/27/17 04:55 EAL [email or web address]) Pulse Oximetry Assessment Oxygen Saturation (92-100) 96 Oxygen Flow Rate (L/min) 2 Oxygen Delivery Method Face Tent Fraction of Inspired Oxygen (FIO2) 28 Equipment Usage Equipment in Use Continuous SpO2 Machine # 4 Intake & Output 01/26/17 01/27/17 01/28/17 06:59 06:59 06:59 Intake Total 3787 4746 Output Total 1500 2400 Balance 2287 2346 Weight 122 kg 122 kg General appearance: PRESENT: no acute distress Eye exam: PRESENT: conjunctiva pink. ABSENT: scleral icterus Mouth exam: PRESENT: moist, tongue midline Neck exam: ABSENT: JVD Respiratory exam: PRESENT: clear to auscultation blanca. ABSENT: rales, rhonchi, wheezes Cardiovascular exam: PRESENT: RRR. ABSENT: diastolic murmur, rubs, systolic murmur GI/Abdominal exam: PRESENT: normal bowel sounds, soft. ABSENT: distended, guarding, mass, organolmegaly, rebound, tenderness Neurological exam: PRESENT: alert, awake, oriented to person, oriented to place , oriented to time, oriented to situation, CN II-XII grossly intact. ABSENT: motor sensory deficit Psychiatric exam: PRESENT: appropriate affect Skin exam: PRESENT: other - Ecchymosis around the periorbital area, bridge of the nose, chin. Results Laboratory Results: 01/23/17 19:00 01/23/17 19:00 Impressions: Chest X-Ray 01/23/17 00:00 IMPRESSION: NO ACUTE RADIOGRAPHIC FINDING IN THE CHEST. Elbow X-Ray 01/24/17 00:00 IMPRESSION: Or ORIF radial fracture. Fluoroscopy 01/24/17 00:00 IMPRESSION: Or ORIF radial fracture. Assessment & Plan - Diagnosis (1) Radial neck fracture Qualifiers: Encounter type: initial encounter Fracture type: closed Fracture alignment: nondisplaced Laterality: left Qualified Code(s): S52.135A - Nondisplaced fracture of neck of left radius, initial encounter for closed fracture Is this a current diagnosis for this admission?: Yes Plan: The patient had a fall and fractured both of her arms. The patient had surgical repair without difficulty. (2) Obstructive sleep apnea Is this a current diagnosis for this admission?: Yes Plan: The patient normally wears a CPAP at night. Because of her nasal fracture she will be unable to do that. We will give oxygen at night and watch her closely to make certain she does not have desaturations. (3) Hypertension Is this a current diagnosis for this admission?: Yes Plan: Continue with losartan and Norvasc. (4) Asthma Is this a current diagnosis for this admission?: Yes Plan: We will give nebulizers as needed. (5) Peripheral neuropathy Is this a current diagnosis for this admission?: Yes (6) Pernicious anemia Is this a current diagnosis for this admission?: Yes (7) Nasal fracture Qualifiers: Encounter type: initial encounter Fracture type: closed Qualified Code(s) : S02.2XXA - Fracture of nasal bones, initial encounter for closed fracture Is this a current diagnosis for this admission?: Yes (8) Depression Is this a current diagnosis for this admission?: Yes Plan: The patient is on Effexor and Elavil as well as Ativan. We will continue with her outpatient dosing. (9) Cellulitis Is this a current diagnosis for this admission?: Yes Plan: Patient has some erythema on the left arm proximal to the surgical site with possible cellulitis. Will check blood cultures and start on vancomycin. - Time Time Spent with patient: 15-24 minutes - Inpatient Certification Medical Necessity: Need for IV Antibiotics
[2017-01-27] MEDS: VANCOMYCIN HCL 1,500 MG in DEXTROSE 5%-WATER 250 ML IV SCH ×2 (11:10→22:19)
[2017-01-27] MEDS: AMITRIPTYLINE HCL 75 MG TABLET PO SCH (22:20)
[2017-01-27] MEDS: MONTELUKAST SODIUM 10 MG TABLET PO SCH (22:21)
[2017-01-28] MEDS: OXYCODONE HCL IR 5 MG TABLET PO PRN ×4 (03:49→21:52)
[2017-01-28] MEDS: MORPHINE SULFATE 10 MG/ML INJ IV PRN ×3 (05:00→18:10)
[2017-01-28] MEDS: LANSOPRAZOLE 30 MG TAB.RAP.DR PO SCH ×2 (05:05→17:40)
[2017-01-28 05:23] LABS: ABSOLUTE EOSINOPHILS # (AUTO) 0.2 10^3/uL (0.0-0.6); ABSOLUTE LYMPHOCYTES (AUTO) 1.2 10^3/uL (0.5-4.7); ABSOLUTE MONOCYTES (AUTO) 0.5 10^3/uL (0.1-1.4); ABSOLUTE NEUT (AUTO) 2.1 10^3/uL (1.7-8.2); BASOPHILS % (AUTO) 0.9 % (0-2); EOSINOPHILS % (AUTO) 5.3 % (0-6); HEMATOCRIT 34.5 % (36.0-47.0); HEMOGLOBIN 11.6 g/dL (12.0-15.5); HGB HCT DIFFERENCE 0.3; LYMPHOCYTES % (AUTO) 29.2 % (13-45); MEAN CORPUSCULAR HEMOGLOBIN 29.7 pg (27.0-33.4); MEAN CORPUSCULAR HGB CONC 33.7 g/dL (32.0-36.0); MEAN CORPUSCULAR VOLUME 88 fl (80-97); MONOCYTES % (AUTO) 12.2 % (3-13); RED BLOOD COUNT 3.92 10^6/uL (3.72-5.28); RED CELL DISTRIBUTION WIDTH 13.6 % (11.5-14.0); SEGMENTED NEUTROPHILS % (AUTO) 52.4 % (42-78)
[2017-01-28 05:44] LABS: ANION GAP 12 (5-19); BLOOD UREA NITROGEN 9 mg/dL (7-20); CALCIUM 8.3 mg/dL (8.4-10.2); CARBON DIOXIDE 25 mmol/L (22-30); CHLORIDE 108 mmol/L (98-107); CREATININE RESULT 0.57 mg/dL (0.52-1.25); GLUCOSE 74 mg/dL (75-110); POTASSIUM 3.7 mmol/L (3.6-5.0); SODIUM 145.4 mmol/L (137-145)
--- NOTE | 2017-01-28 07:58 | PDOC PROGRESS REPORT ---
Subjective Progress Note for:: 01/28/17 Subjective:: Patient without new complaints Physical Exam Vital Signs: Temp Pulse Resp BP Pulse Ox 36.6 C 80 18 129/53 H 100 01/28/17 05:09 01/28/17 05:09 01/28/17 05:09 01/28/17 05:09 01/28/17 05:09 Pulse Oximeter Continuous Start: 01/24/17 18: 27 Freq: RTQ4 Status: Active Document 01/28/17 04:10 CBR (Rec: 01/28/17 04:16 CBR [email or web address]) Pulse Oximetry Assessment Oxygen Saturation (92-100) 96 Oxygen Delivery Method Room Air Fraction of Inspired Oxygen (FIO2) 21 Equipment Usage Equipment in Use Continuous SpO2 Machine # 4 Intake & Output 01/27/17 01/28/17 01/29/17 06:59 06:59 06:59 Intake Total 4746 1452 Output Total 2400 4700 Balance 2346 -3248 Weight 122 kg General appearance: PRESENT: no acute distress Musculoskeletal exam: PRESENT: other - Bilateral surgical sites of benign. Active range of motion both in terms of flexion-extension as well as pronation and supination are improving. Results Laboratory Results: 01/28/17 04:52 01/28/17 04:52 01/28/17 01/28/17 04:52 04:52 WBC 4.0 RBC 3.92 Hgb 11.6 L Hct 34.5 L MCV 88 MCH 29.7 MCHC 33.7 RDW 13.6 Plt Count 168 Seg Neutrophils % 52.4 Lymphocytes % 29.2 Monocytes % 12.2 Eosinophils % 5.3 Basophils % 0.9 Absolute Neutrophils 2.1 Absolute Lymphocytes 1.2 Absolute Monocytes 0.5 Absolute Eosinophils 0.2 Absolute Basophils 0.0 Sodium 145.4 H Potassium 3.7 Chloride 108 H Carbon Dioxide 25 Anion Gap 12 BUN 9 Creatinine 0.57 Est GFR ( Amer) > 60 Est GFR (Non-Af Amer) > 60 Glucose 74 L Calcium 8.3 L Impressions: Chest X-Ray 01/23/17 00:00 IMPRESSION: NO ACUTE RADIOGRAPHIC FINDING IN THE CHEST. Elbow X-Ray 01/24/17 00:00 IMPRESSION: Or ORIF radial fracture. Fluoroscopy 01/24/17 00:00 IMPRESSION: Or ORIF radial fracture. Status: Imported from PACS Assessment & Plan - Diagnosis (1) Radial neck fracture Qualifiers: Encounter type: initial encounter Fracture type: closed Fracture alignment: nondisplaced Laterality: left Qualified Code(s): S52.135A - Nondisplaced fracture of neck of left radius, initial encounter for closed fracture Is this a current diagnosis for this admission?: Yes Plan: The patient remains afebrile and my clinical impression of the surgical sites is that they are benign. I see no reason for starting antibiotics but further data. I have requested blood studies to look at the level of inflammation. The patient becomes febrile then my opinion would change. - Time Time Spent with patient: 15-24 minutes Anticipated discharge: SNF Within: when bed available
[2017-01-28] MEDS: LOSARTAN POTASSIUM 50 MG TABLET PO SCH (09:46)
[2017-01-28] MEDS: VENLAFAXINE HCL 75 MG CAP.SR.24H PO SCH ×2 (09:47→21:51)
[2017-01-28] MEDS: LORAZEPAM INJ 2 MG/1 ML VIAL IV SCH ×2 (09:47→21:53)
[2017-01-28] MEDS: ASPIRIN 325 MG TABLET, ENT COATED PO SCH (09:47)
[2017-01-28] MEDS: VANCOMYCIN HCL 1,500 MG in DEXTROSE 5%-WATER 250 ML IV SCH (09:47)
[2017-01-28] MEDS: AMLODIPINE BESYLATE 2.5 MG TABLET PO SCH (09:48)
--- NOTE | 2017-01-28 10:05 | PDOC PROGRESS REPORT ---
Subjective Progress Note for:: 01/28/17 Subjective:: Denies any complaints. Physical Exam Vital Signs: Temp Pulse Resp BP Pulse Ox 97.5 F 71 16 134/56 H 100 01/28/17 07:50 01/28/17 07:50 01/28/17 07:50 01/28/17 07:50 01/28/17 07:50 Pulse Oximeter Continuous Start: 01/24/17 18: 27 Freq: RTQ4 Status: Active Document 01/28/17 04:10 CBR (Rec: 01/28/17 04:16 CBR [email or web address]) Pulse Oximetry Assessment Oxygen Saturation (92-100) 96 Oxygen Delivery Method Room Air Fraction of Inspired Oxygen (FIO2) 21 Equipment Usage Equipment in Use Continuous SpO2 Machine # 4 Intake & Output 01/27/17 01/28/17 01/29/17 06:59 06:59 06:59 Intake Total 4746 1452 Output Total 2400 4700 Balance 2346 -3248 Weight 122 kg General appearance: PRESENT: no acute distress Eye exam: PRESENT: conjunctiva pink. ABSENT: scleral icterus Mouth exam: PRESENT: moist, tongue midline Neck exam: ABSENT: JVD Respiratory exam: PRESENT: clear to auscultation blanca. ABSENT: rales, rhonchi, wheezes Cardiovascular exam: PRESENT: RRR. ABSENT: diastolic murmur, rubs, systolic murmur GI/Abdominal exam: PRESENT: normal bowel sounds, soft. ABSENT: distended, guarding, mass, organolmegaly, rebound, tenderness Extremities exam: ABSENT: calf tenderness, clubbing, pedal edema Skin exam: PRESENT: other - Minimal erythema on the arms Results Laboratory Results: 01/28/17 04:52 01/28/17 04:52 01/28/17 01/28/17 04:52 04:52 WBC 4.0 RBC 3.92 Hgb 11.6 L Hct 34.5 L MCV 88 MCH 29.7 MCHC 33.7 RDW 13.6 Plt Count 168 Seg Neutrophils % 52.4 Lymphocytes % 29.2 Monocytes % 12.2 Eosinophils % 5.3 Basophils % 0.9 Absolute Neutrophils 2.1 Absolute Lymphocytes 1.2 Absolute Monocytes 0.5 Absolute Eosinophils 0.2 Absolute Basophils 0.0 Sodium 145.4 H Potassium 3.7 Chloride 108 H Carbon Dioxide 25 Anion Gap 12 BUN 9 Creatinine 0.57 Est GFR ( Amer) > 60 Est GFR (Non-Af Amer) > 60 Glucose 74 L Calcium 8.3 L Impressions: Chest X-Ray 01/23/17 00:00 IMPRESSION: NO ACUTE RADIOGRAPHIC FINDING IN THE CHEST. Elbow X-Ray 01/24/17 00:00 IMPRESSION: Or ORIF radial fracture. Fluoroscopy 01/24/17 00:00 IMPRESSION: Or ORIF radial fracture. Assessment & Plan - Diagnosis (1) Radial neck fracture Qualifiers: Encounter type: initial encounter Fracture type: closed Fracture alignment: nondisplaced Laterality: left Qualified Code(s): S52.135A - Nondisplaced fracture of neck of left radius, initial encounter for closed fracture Is this a current diagnosis for this admission?: Yes Plan: The patient had a fall and fractured both of her arms. The patient had surgical repair without difficulty. (2) Obstructive sleep apnea Is this a current diagnosis for this admission?: Yes Plan: The patient normally wears a CPAP at night. Because of her nasal fracture she will be unable to do that. We will give oxygen at night and watch her closely to make certain she does not have desaturations. (3) Hypertension Is this a current diagnosis for this admission?: Yes Plan: Continue with losartan and Norvasc. (4) Asthma Is this a current diagnosis for this admission?: Yes Plan: We will give nebulizers as needed. (5) Peripheral neuropathy Is this a current diagnosis for this admission?: Yes (6) Pernicious anemia Is this a current diagnosis for this admission?: Yes (7) Nasal fracture Qualifiers: Encounter type: initial encounter Fracture type: closed Qualified Code(s) : S02.2XXA - Fracture of nasal bones, initial encounter for closed fracture Is this a current diagnosis for this admission?: Yes (8) Depression Is this a current diagnosis for this admission?: Yes Plan: The patient is on Effexor and Elavil as well as Ativan. We will continue with her outpatient dosing. (9) Cellulitis Is this a current diagnosis for this admission?: Yes Plan: Patient has some erythema on the left arm proximal to the surgical site with possible cellulitis. Will check blood cultures and start on vancomycin. If the blood cultures are negative tomorrow we will DC the vancomycin. - Time Time Spent with patient: 15-24 minutes
--- NOTE | 2017-01-28 10:22 | Progress Note ---
Provider Note Provider Note: The hospital service will sign off now. If you have further questions please reconsult us.
[2017-01-28] MEDS: MONTELUKAST SODIUM 10 MG TABLET PO SCH (21:51)
[2017-01-28] MEDS: AMITRIPTYLINE HCL 75 MG TABLET PO SCH (21:53)
[2017-01-29] MEDS: MORPHINE SULFATE 10 MG/ML INJ IV PRN ×2 (02:34→09:19)
[2017-01-29 05:39] LABS: ABSOLUTE EOSINOPHILS # (AUTO) 0.3 10^3/uL (0.0-0.6); ABSOLUTE LYMPHOCYTES (AUTO) 1.2 10^3/uL (0.5-4.7); ABSOLUTE MONOCYTES (AUTO) 0.5 10^3/uL (0.1-1.4); ABSOLUTE NEUT (AUTO) 2.2 10^3/uL (1.7-8.2); BASOPHILS % (AUTO) 1.2 % (0-2); EOSINOPHILS % (AUTO) 6.3 % (0-6); HEMATOCRIT 36.1 % (36.0-47.0); HEMOGLOBIN 12.1 g/dL (12.0-15.5); HGB HCT DIFFERENCE 0.2; LYMPHOCYTES % (AUTO) 29.4 % (13-45); MEAN CORPUSCULAR HEMOGLOBIN 29.8 pg (27.0-33.4); MEAN CORPUSCULAR HGB CONC 33.6 g/dL (32.0-36.0); MEAN CORPUSCULAR VOLUME 89 fl (80-97); MONOCYTES % (AUTO) 11.4 % (3-13); RED BLOOD COUNT 4.07 10^6/uL (3.72-5.28); RED CELL DISTRIBUTION WIDTH 13.7 % (11.5-14.0); SEGMENTED NEUTROPHILS % (AUTO) 51.7 % (42-78); WHITE BLOOD COUNT 4.2 10^3/uL (4.0-10.5)
[2017-01-29] MEDS: LANSOPRAZOLE 30 MG TAB.RAP.DR PO SCH ×2 (05:39→17:26)
[2017-01-29] MEDS: OXYCODONE HCL IR 5 MG TABLET PO PRN ×3 (05:39→21:14)
[2017-01-29 06:00] LABS: ANION GAP 7 (5-19); BLOOD UREA NITROGEN 8 mg/dL (7-20); C-REACTIVE PROTEIN 34.8 mg/L (<10.0); CALCIUM 8.7 mg/dL (8.4-10.2); CARBON DIOXIDE 29 mmol/L (22-30); CHLORIDE 107 mmol/L (98-107); CREATININE RESULT 0.55 mg/dL (0.52-1.25); GLUCOSE 99 mg/dL (75-110); POTASSIUM 4.3 mmol/L (3.6-5.0); SODIUM 142.9 mmol/L (137-145)
[2017-01-29 06:18] LABS: ERYTHROCYTE SEDIMENTATION RATE 31 mm/hr (0-30)
[2017-01-29] MEDS: LORAZEPAM INJ 2 MG/1 ML VIAL IV SCH ×2 (09:19→21:13)
[2017-01-29] MEDS: LOSARTAN POTASSIUM 50 MG TABLET PO SCH (09:20)
[2017-01-29] MEDS: AMLODIPINE BESYLATE 2.5 MG TABLET PO SCH (09:20)
[2017-01-29] MEDS: VENLAFAXINE HCL 75 MG CAP.SR.24H PO SCH ×2 (09:20→21:13)
[2017-01-29] MEDS: ASPIRIN 325 MG TABLET, ENT COATED PO SCH (09:20)
[2017-01-29] MEDS ORDERED: IBUPROFEN 800 MG TABLET PO PRN (15:06)
[2017-01-29] MEDS: MONTELUKAST SODIUM 10 MG TABLET PO SCH (21:13)
[2017-01-29] MEDS: AMITRIPTYLINE HCL 75 MG TABLET PO SCH (21:14)
[2017-01-30] MEDS: LANSOPRAZOLE 30 MG TAB.RAP.DR PO SCH (05:56)
[2017-01-30] MEDS: OXYCODONE HCL IR 5 MG TABLET PO PRN (05:56)
--- NOTE | 2017-01-30 06:55 | PDOC TRANSFER SUMMARY ---
General - Admit/Disc Date/PCP Admission Date/Primary Care Provider: 01/23/17 18:25 Discharge Date: 01/30/17 - Discharge Diagnosis (1) Radial neck fracture Is this a current diagnosis for this admission?: Yes - Additional Information Resuscitation Status: Full Code Discharge Diet: As Tolerated, Regular Discharge Activity: Activity As Tolerated, Balance Activity w/Rest, No Driving, Walk Frequently Home Medications: Albuterol Sulfate [Albuterol Sulfate 2.5mg/3 mL] 2.5 mg IH Q4 PRN 01/24/17 Albuterol Sulfate [Ventolin Hfa] 2 puff IH Q4 PRN 01/24/17 Amitriptyline HCl [Elavil 150 mg Tablet] 1 tab PO DAILY 01/24/17 Amlodipine Besylate 2.5 mg PO DAILY 01/24/17 Ascorbic Acid [Vitamin C] 1,000 mg PO DAILY 01/24/17 Aspirin [Adult Low Dose Aspirin EC] 81 mg PO DAILY 01/24/17 Cholecalciferol (Vitamin D3) [Vitamin D3 5000 unit Capsule] 5,000 unit PO DAILY 01/24/17 Cyanocobalamin (Vitamin B-12) [Vitamin B-12 Inj 1000 Mcg/1 ml Vial] 1,000 mcg IM [id number] 01/24/17 Ergocalciferol (Vitamin D2) [Vitamin D2] 50,000 unit PO FR 01/24/17 Ferrous Sulfate 325 mg PO BID 01/24/17 Lorazepam 2 mg PO BID 01/24/17 Losartan Potassium 50 mg PO DAILY 01/24/17 Montelukast Sodium 10 mg PO DAILY 01/24/17 [place]-3 Fatty Acids/Fish Oil [Fish Oil 1,000 mg Capsule] 2 tab PO DAILY Omeprazole 40 mg PO BID 01/24/17 Temazepam 15 mg PO DAILY 01/24/17 Venlafaxine HCl [Effexor] 150 mg PO BID 01/24/17 Zolpidem Tartrate 10 mg PO DAILY 01/24/17 Aspirin [Ecotrin 325 mg EC Tablet] 325 mg PO DAILY tabec 01/30/17 Oxycodone HCl [Oxy-Ir 5 mg Tablet] 5 mg PO Q6HP PRN tablet 01/30/17 History of Present Illness Admission Date/PCP: 01/23/17 18:25 History of Present Illness: The patient is a 61-year-old white female who fell onto outstretched bilateral upper extremities and sustained bilateral radial neck fractures as well as a nasal fracture. The patient was admitted to the orthopedic service for fracture management. Hospital Course Hospital Course: Patient was taken to the operating room and underwent an uncomplicated open reduction internal fixation of bilateral radial neck fractures. She tolerated the procedure without complication. Pain control, function, and facial ecchymosis were issues during the hospitalization. Physical Exam Vital Signs: Temp Pulse Resp BP Pulse Ox 36.4 C 67 18 130/64 H 99 01/30/17 06:02 01/30/17 06:02 01/30/17 06:02 01/30/17 06:02 01/30/17 06:02 Pulse Oximeter Continuous Start: 01/24/17 18: 27 Freq: RTQ4 Status: Active Document 01/30/17 04:00 STI (Rec: 01/30/17 04:02 STI [email or web address]) Pulse Oximetry Assessment Oxygen Delivery Method Room Air Fraction of Inspired Oxygen (FIO2) 21 Equipment Usage Equipment Standby Continuous SpO2 Machine # N-4 Intake & Output 01/28/17 01/29/17 01/30/17 06:59 06:59 06:59 Intake Total 1452 1123 1830 Output Total 4700 3900 3900 Balance -2846 -6840 -6320 Weight 125.237 kg General appearance: PRESENT: no acute distress Head exam: PRESENT: normocephalic Head Image: 1 - Ecchymosis resolving Respiratory exam: PRESENT: unlabored Cardiovascular exam: PRESENT: RRR Pulses: PRESENT: normal radial pulses Vascular exam: PRESENT: normal capillary refill GI/Abdominal exam: PRESENT: soft Rectal exam: PRESENT: deferred Musculoskeletal exam: PRESENT: other - Bilateral extremity incisions are healing uneventfully covered with Dermabond. Active and passive range of motion are limited mildly. Most significant limitation is in supination. Distal neurovascular examination is intact. Neurological exam: PRESENT: alert, awake, oriented to person, oriented to place , oriented to time, oriented to situation. ABSENT: motor sensory deficit Psychiatric exam: PRESENT: appropriate affect, normal mood. ABSENT: homicidal ideation, suicidal ideation Skin exam: PRESENT: dry, intact, warm. ABSENT: cyanosis, rash Results Laboratory Results: 01/29/17 05:00 01/29/17 05:00 Impressions: Chest X-Ray 01/23/17 00:00 IMPRESSION: NO ACUTE RADIOGRAPHIC FINDING IN THE CHEST. Elbow X-Ray 01/24/17 00:00 IMPRESSION: Or ORIF radial fracture. Fluoroscopy 01/24/17 00:00 IMPRESSION: Or ORIF radial fracture. Transfer Plan - Time Spent with Patient Time spent with patient: Less than 30 Minutes Plan Discharge Plan: [facility] Occupational therapy for active range of motion active assisted range of motion of both upper extremities. Follow-up with Dr. Murray and [facility] for surgery in 2 weeks for wound evaluation. Time Spent: Less than 30 Minutes
[2017-01-30] MEDS: LORAZEPAM INJ 2 MG/1 ML VIAL IV SCH (09:10)
[2017-01-30] MEDS: AMLODIPINE BESYLATE 2.5 MG TABLET PO SCH (09:10)
[2017-01-30] MEDS: ASPIRIN 325 MG TABLET, ENT COATED PO SCH (09:10)
[2017-01-30] MEDS: VENLAFAXINE HCL 75 MG CAP.SR.24H PO SCH (09:10)
[2017-01-30] MEDS: LOSARTAN POTASSIUM 50 MG TABLET PO SCH (09:10)
[2017-01-30 16:41] VITALS: BP 130/54
== END 2017-01-30 16:40 | disposition home health service (06) | DRG 511 ==
LOC: UNDOADMIN 17:22 → 3N 17:22
PROVIDERS: ADMIT Orthopaedic Surgery; ATTEND Orthopaedic Surgery
PROC: 0PSH04Z Reposition Right Radius with Internal Fixation Device, Open Approach (ICD-10-PCS; 2017-01-24)
PROC: 0PSJ04Z Reposition Left Radius with Internal Fixation Device, Open Approach (ICD-10-PCS; principal; 2017-01-24 14:30)
DX: S52.135A Nondisplaced fracture of neck of left radius, initial encounter for closed fracture (principal); L03.114 Cellulitis of left upper limb; Z68.41 Body mass index [BMI] 40.0-44.9, adult; S52.134A Nondisplaced fracture of neck of right radius, initial encounter for closed fracture; S02.2XXA Fracture of nasal bones, initial encounter for closed fracture; R58 Hemorrhage, not elsewhere classified; I10 Essential (primary) hypertension; K21.9 Gastro-esophageal reflux disease without esophagitis; J45.909 Unspecified asthma, uncomplicated; G62.9 Polyneuropathy, unspecified; D51.0 Vitamin B12 deficiency anemia due to intrinsic factor deficiency; G47.33 Obstructive sleep apnea (adult) (pediatric); F41.1 Generalized anxiety disorder; W18.39XA Other fall on same level, initial encounter; E66.9 Obesity, unspecified; Y93.E9 Activity, other interior property and clothing maintenance; Y92.9 Unspecified place or not applicable; Z60.2 Problems related to living alone; Z79.82 Long term (current) use of aspirin; Z79.51 Long term (current) use of inhaled steroids; Z79.899 Other long term (current) drug therapy; Z88.0 Allergy status to penicillin
CPT/HCPCS: 01740; 36415; 70450; 70486; 71010; 72125; 80048; 85025; 85027; 85610; 85652; 85730; 86140; 87040; 93005; 93010; 94762; 96374; 99284; C1713; J0131; J0330; J0690; J1170; J1741; J2060; J2250; J2270; J2405; J2704; J2765; J3010; J3370; J3490; J7060; J7120; S0119; S0164

== ENCOUNTER 2019-11-03 11:55 | Day surgery (SDC) | payer MEDICARE, OTHER ==
[2019-10-29 10:10] LABS: HEMATOCRIT 43.3 % (36.0-47.0); HEMOGLOBIN 14.5 g/dL (12.0-15.5); MEAN CORPUSCULAR HEMOGLOBIN 29.2 pg (27.0-33.4); MEAN CORPUSCULAR HGB CONC 33.5 g/dL (32.0-36.0); MEAN CORPUSCULAR VOLUME 87 fl (80-97); PLATELET COUNT 174 10^3/uL (150-450); RED BLOOD COUNT 4.95 10^6/uL (3.72-5.28); RED CELL DISTRIBUTION WIDTH 14.4 % (11.5-14.0); WHITE BLOOD COUNT 3.7 10^3/uL (4.0-10.5)
[2019-10-29 10:34] LABS: ANION GAP 6 (5-19); BLOOD UREA NITROGEN 8 mg/dL (7-20); CALCIUM 9.2 mg/dL (8.4-10.2); CARBON DIOXIDE 27 mmol/L (22-30); CHLORIDE 105 mmol/L (98-107); GLUCOSE 115 mg/dL (75-110); POTASSIUM 4.1 mmol/L (3.6-5.0)
[2019-10-29 10:50] LABS: AMORPHOUS SEDIMENT,URINE TRACE /HPF; APPEARANCE,URINE CLOUDY; BILIRUBIN,URINE NEGATIVE (NEGATIVE); COLOR,URINE YELLOW; GLUCOSE, URINE NEGATIVE (NEGATIVE); KETONES,URINE NEGATIVE (NEGATIVE); LEUKOCYTE ESTERASE,URINE TRACE (NEGATIVE); NITRITE,URINE NEGATIVE (NEGATIVE); PROTEIN,URINE NEGATIVE (NEGATIVE); URIC ACID CRYSTALS,URINE MODERATE /HPF; URINE SPECIFIC GRAVITY 1.018; UROBILINOGEN,URINE NEGATIVE mg/dL (<2.0)
--- NOTE | 2019-10-29 12:44 | RADIOLOGY REPORT (SQ) ---
EXAM DESCRIPTION: CHEST PA/LATERAL IMAGES COMPLETED DATE/TIME: 10/29/2019 12:20 pm REASON FOR STUDY: PRE-OP COMPARISON: 2007 EXAM PARAMETERS: NUMBER OF VIEWS: two views TECHNIQUE: Digital Frontal and Lateral radiographic views of the chest acquired. RADIATION DOSE: NA LIMITATIONS: none FINDINGS: LUNGS AND PLEURA: No opacities, masses or pneumothorax. No pleural effusion. MEDIASTINUM AND HILAR STRUCTURES: No masses or contour abnormalities. HEART AND VASCULAR STRUCTURES: Heart normal size. No evidence for failure. BONES: No acute findings. HARDWARE: None in the chest. OTHER: No other significant finding. IMPRESSION: NO SIGNIFICANT RADIOGRAPHIC FINDING IN THE CHEST. TECHNICAL DOCUMENTATION: JOB ID: [id number] 2010 [employer]- All Rights Reserved Reading location - IP/workstation name: [email or web address]
--- NOTE | 2019-10-29 14:59 | EKG REPORT ---
SEVERITY:- NORMAL ECG - SINUS RHYTHM : Confirmed by: Seymour Becerra MD 29-Oct-2019 14:59:00
[~2019-11-03 11:55] MED LIST changes: +CLINDAMYCIN 600 MG/D5W RTU 600 MG/50 ML RTUPB IV PRN; +LACTATED RINGERS 1000 ML IV PRN; +LIDOCAINE 0.5% INJ-PF (5 MG/ML) 50 ML SDV SUBCUT PRN; +ONDANSETRON HCL INJ/PF 4 MG/2 ML SDV ONE; -SUCCINYLCHOLINE CHLORIDE INJ 200 MG/10 ML VIAL ONE
[2019-11-03] MEDS ORDERED: HYDROMORPHONE HCL INJ/PF 2 MG/ML AMPULE ONE (12:17)
[2019-11-03] MEDS ORDERED: MIDAZOLAM 2 MG/2 ML INJ ONE ×2 (12:17→14:31)
[2019-11-03] MEDS ORDERED: BUPIVACAINE HCL 0.25 % INJ/PF (2.5 MG/1 ML) 30 ML VIAL ONE (12:17)
[2019-11-03] MEDS ORDERED: FENTANYL CITRATE INJ/PF 100 MCG/2 ML AMPUL ONE (12:17)
[2019-11-03] MEDS ORDERED: LIDOCAINE 1%/EPINEPHRINE INJ 20 ML VIAL ONE (12:17)
[2019-11-03] MEDS ORDERED: KETAMINE HCL INJ 500 MG/10 ML VIAL ONE (12:17)
[2019-11-03] MEDS ORDERED: PROPOFOL INJ 200 MG/20 ML VIAL IV ONE (12:18)
[2019-11-03] MEDS ORDERED: CLINDAMYCIN 600 MG/D5W RTU 600 MG/50 ML RTUPB IV ONE (13:09)
[2019-11-03] MEDS ORDERED: DIPHENHYDRAMINE HCL 50 MG/ML VIAL IV PRN (14:53)
[2019-11-03] MEDS ORDERED: FENTANYL CITRATE INJ/PF 100 MCG/2 ML AMPUL IV PRN ×3 (14:53)
[2019-11-03] MEDS ORDERED: MORPHINE SULFATE 10 MG/ML INJ IV PRN (14:53)
[2019-11-03] MEDS ORDERED: PROMETHAZINE HCL INJ 25 MG/1 ML VIAL IV PRN ×2 (14:53)
[2019-11-03] MEDS ORDERED: MEPERIDINE HCL/PF INJ 25 MG/1 ML DISP.SYRIN IV PRN (14:53)
--- NOTE | 2019-11-03 15:08 | Operative Report ---
Operative Report DATE OF SURGERY: 11/03/19 PREOPERATIVE DIAGNOSIS: Status post ORIF bilateral radial head fractures with r esidual hardware OPERATION: Hardware removal bilateral upper extremities SURGEON: ROBIN MENDEZ ANESTHESIA: LMAC TISSUE REMOVED OR ALTERED: Hardware to CSS ESTIMATED BLOOD LOSS: 25 PROCEDURE: With the patient supine on the operating table bilateral upper extremities were prepped and draped in a sterile fashion. Began on the right side the previous surgical approach the radial head is identified. The skin is infiltrated with combination of Marcaine, Xylocaine, and epinephrine. Subsequent longitudinal incisions made in line with the previous surgical approach. Incision is carried down to the radial head and the plate is easily identified. 5 stainless steel screws and a subsequent plate stainless steel plate are easily removed. The wound is irrigated. His closure is interrupted Vicryl followed by nylon. A sterile dressing was applied. Attention was now turned to the left upper extremity. Identical procedures performed performed on the left side. The patient is returned to the PACU in satisfactory condition.
--- NOTE | 2019-11-03 15:09 | Discharge Summary ---
Discharge Summary (SDC) - Discharge Final Diagnosis: Retained hardware bilateral upper extremities Date of Surgery: 11/03/19 Discharge Date: 11/03/19 Condition: Good Treatment or Instructions: Activity as tolerated Referrals: ROBIN MENDEZ MD [ACTIVE STAFF] - Respiratory Treatments at Home: Deep Breathing/Coughing Discharge Activity: Balance Activity w/Rest, No tub bath Home Care Assistance: None Needed Report the Following to Your Physician Immediately: Shortness of Breath, Fever over 101 Degrees, Drainage-Foul Smelling
[2019-11-03] MEDS ORDERED: OXYCODONE-ACETAMINOPHEN 5-325 MG TABLET PO PRN (15:16)
[2019-11-03] MEDS ORDERED: MORPHINE SULFATE 10 MG/ML INJ ONE (15:43)
[2019-11-03] MEDS: OXYCODONE-ACETAMINOPHEN 5-325 MG TABLET ONE ×2 (16:23→16:25)
[2019-11-03 18:40] VITALS: BP 141/81
== END 2019-11-03 18:15 | disposition home or self-care (01) ==
LOC: OROUT 11:55
PROVIDERS: ATTEND Orthopaedic Surgery
DX: T84.84XA Pain due to internal orthopedic prosthetic devices, implants and grafts, initial encounter (principal); Y83.8 Other surgical procedures as the cause of abnormal reaction of the patient, or of later complication, without mention of misadventure at the time of the procedure; I10 Essential (primary) hypertension; K21.9 Gastro-esophageal reflux disease without esophagitis; Z79.899 Other long term (current) drug therapy; Z79.82 Long term (current) use of aspirin; R01.1 Cardiac murmur, unspecified; Z03.818 Encounter for observation for suspected exposure to other biological agents ruled out
CPT/HCPCS: 93005; 36415; 85027; 80048; 81001; 71046; 93010; 20680 ×2; U0003; J2250; J3010; J3490 ×2; J2270; A9270; J1170; J2405; J2704; C9803; 1740; 87635